=== PATIENT | male | born 2000 ===

== ENCOUNTER 2018-06-19 16:28 | Emergency (ER) | payer SELFPAY ==
--- NOTE | 2018-06-19 18:15 | EDM.PDOC ---
Scribed by Alyssa Moreno 06/19/18 [id number] for Miguelina Potter NP ED HPI GENERAL MEDICAL PROBLEM - General Chief Complaint: Genitourinary Problem Stated Complaint: ? [id number] Time Seen by Provider: 06/19/18 17:37 Source of Information: Reports: Patient, RN, RN Notes Reviewed History Limitations: Reports: No Limitations - History of Present Illness INITIAL COMMENTS - FREE TEXT/NARRATIVE: Patient presents to ER with complaint of swelling of the penis after shaving the genitals. Patient is uncircumcised. Denies trouble with urination. Denies sexual activity or concern of STD. Denies fever or chills. Onset: Gradual Duration: Getting Worse Location: Reports: Other (penis) Quality: Reports: Ache Severity: Moderate Improves with: Reports: None Worsens with: Reports: None Associated Symptoms: Reports: No Other Symptoms Right Flank Pain Score (Numeric/FACES): 9 - Related Data Allergies Allergy/AdvReac Type Severity Reaction Status Date / Time No Known Allergies Allergy Verified 06/19/18 18:02 Home Meds: Home Meds . [No Known Home Meds] 06/19/18 [History] ED ROS GENERAL - Review of Systems Review Of Systems: ROS reveals no pertinent complaints other than HPI. ED EXAM, RENAL/ - Physical Exam Exam: See Below Exam Limited By: No Limitations General Appearance: Alert, WD/WN, No Apparent Distress Eye Exam: Bilateral Eye: EOMI, Normal Inspection, PERRL Ears: Normal External Exam, Normal Canal, Hearing Grossly Normal, Normal TMs Nose: Normal Inspection, Normal Mucosa, No Blood Throat/Mouth: Normal Inspection, Normal Lips, Normal Teeth, Normal Gums, Normal Oropharynx, Normal Voice, No Airway Compromise Head: Atraumatic, Normocephalic Neck: Normal Inspection, Supple, Non-Tender, Full Range of Motion Respiratory/Chest: No Respiratory Distress, Lungs Clear, Normal Breath Sounds, No Accessory Muscle Use, Chest Non-Tender Cardiovascular: Normal Peripheral Pulses, Regular Rate, Rhythm, No Edema, No Gallop, No JVD, No Murmur, No Rub GI/Abdominal: Normal Bowel Sounds, Soft, Non-Tender, No Organomegaly, No Distention, No Abnormal Bruit, No Mass (Male) Exam: Other (penis foreskin is swollen) Rectal (Males) Exam: Deferred Back Exam: Normal Inspection Extremities: Normal Inspection, Normal Range of Motion, Non-Tender, Normal Capillary Refill, No Pedal Edema Neurological: Alert, Oriented, CN II-XII Intact, Normal Cognition, Normal Gait, Normal Reflexes, No Motor/Sensory Deficits Psychiatric: Normal Affect, Normal Mood Skin Exam: Warm, Dry, Intact, Normal Color, No Rash Course - Vital Signs Last Recorded V/S: Last Vital Signs Temp 98.4 F 06/19/18 17:38 Pulse 72 06/19/18 17:38 Resp 16 06/19/18 17:38 BP 139/73 06/19/18 17:38 Pulse Ox 100 06/19/18 17:38 - Orders/Labs/Meds Orders: Active Orders 24 hr Category Date Time Status CHLAMYDIA AND GONORRHEA BY [facility] Stat Lab 06/19/18 17:25 Received Labs: Laboratory Tests 06/19/18 Range/Units 17:25 Urine Color Dark yellow (YELLOW) Urine Appearance Clear (CLEAR) Urine pH 6.5 (5.0-9.0) Ur Specific Harmony 1.025 (1.005-1.030) Urine Protein Negative (NEGATIVE) Urine Glucose (UA) Negative (NEGATIVE) Urine Ketones Negative (NEGATIVE) Urine Occult Blood Negative (NEGATIVE) Urine Nitrite Negative (NEGATIVE) Urine Bilirubin Negative (NEGATIVE) Urine Urobilinogen 0.2 (0.2-1.0) mg/dL Ur Leukocyte Esterase Negative (NEGATIVE) Departure - Departure Time of Disposition: 17:52 Disposition: Home, Self-Care 01 Condition: Fair Clinical Impression: Balanoposthitis - Discharge Information *PRESCRIPTION DRUG MONITORING PROGRAM REVIEWED*: No *COPY OF PRESCRIPTION DRUG MONITORING REPORT IN PATIENT RAY: No Forms: ED Department Discharge Additional Instructions: RX: Clotrimazole Apply to the area twice daily for 1-3 weeks. Wash with a warm wet washcloth before applying medication Follow up with your primary care facility if no improvement - My Orders Last 24 Hours: My Active Orders 06/19/18 17:25 CHLAMYDIA AND GONORRHEA BY [facility] Stat - Assessment/Plan Last 24 Hours: My Active Orders 06/19/18 17:25 CHLAMYDIA AND GONORRHEA BY [facility] Stat I have read and agree with the documentation that has been completed regarding this visit. By signing this record, I attest that the documentation was completed in my physical presence and is an accurate record of the encounter.
== END 2018-06-19 18:14 | disposition home or self-care (01) ==
LOC: DL.ED 16:28
DX: N47.6 Balanoposthitis (principal)
CPT/HCPCS: 81003; 87491; 87591; 99283

== ENCOUNTER 2022-01-30 19:36 | Emergency (ER) | payer OTHER | END 2022-01-30 20:33 | disposition home or self-care (01) | LOC: DL.ED 19:36 | DX: S46.912A Strain of unspecified muscle, fascia and tendon at shoulder and upper arm level, left arm, initial encounter (principal); W50.0XXA Accidental hit or strike by another person, initial encounter; Y93.67 Activity, basketball | CPT/HCPCS: 73030-LT; 99282; 99283 ==

== ENCOUNTER 2024-08-06 06:31 | Day surgery (SDC) | payer OTHER ==
[2024-08-06] MEDS ORDERED: Midazolam 1 MG/ML 2 ML SDV IV ONE (06:32)
[2024-08-06] MEDS ORDERED: fentaNYL 100 MCG/2 ML SDV IV ONE (06:32)
[2024-08-06] MEDS ORDERED: fentaNYL 100 MCG/2 ML SDV ONE (06:53)
[2024-08-06] MEDS ORDERED: Midazolam 1 MG/ML 2 ML SDV ONE (06:53)
[2024-08-06] MEDS: Dextrose 5%-0.45% NaCl 1,000 ML IV SCH (07:08)
[2024-08-06] MEDS: fentaNYL 100 MCG/2 ML SDV IV ONE ×2 (07:28)
[2024-08-06] MEDS: Midazolam 1 MG/ML 2 ML SDV IV ONE ×3 (07:29→07:33)
== END 2024-08-06 09:21 | disposition home or self-care (01) ==
LOC: DL.ENDO 06:31
PROVIDERS: ATTEND Internal Medicine Gastroenterology
DX: K29.50 Unspecified chronic gastritis without bleeding (principal); E66.09 Other obesity due to excess calories
CPT/HCPCS: 43239; J2250; J3010; J7799